=== PATIENT | female | born 1985 | race Caucasian/White ===

== ENCOUNTER 2023-02-16 12:06 | Emergency (ER) | payer MEDICAID ==
[~2023-02-16] VITALS: Ht 154.9 cm; Wt 78.0 kg
[2023-02-16 12:17] VITALS: BP_SYST 143
[2023-02-16] MEDS ORDERED: IPRATROPIUM BROM 0.5 MG/2.5 ML VIAL.NEB (ATROVENT) INH ONE (12:30)
[2023-02-16] MEDS ORDERED: ALBUTEROL SULFATE 0.083% 2.5 MG/3 ML VIAL.NEB INH ONE (12:30)
[2023-02-16 16:03] VITALS: BP_SYST 130
--- NOTE | 2023-02-16 16:05 | NUR ---
ER at triage examining patient.
--- NOTE | 2023-02-16 16:07 | NUR ---
Pt C/O SOB Patient given written and verbal discharge instructions and verbalizes understanding. ER MD discussed with patient the results and treatment provided. Patient in stable condition. ID arm band removed. IV catheter removed intact and dressing applied, no active bleeding. Rx of albuterol given. Patient educated on pain management and to follow up with PMD. Pain Scale 0. Opportunity for questions provided and answered. Medication side effect fact sheet provided. Left w/O DC papers
[2023-02-16] MEDS ORDERED: PRED20TA PO (18:20)
[2023-02-16] MEDS ORDERED: ALBMDI INH (18:20)
--- NOTE | 2023-02-16 18:24 | NUR ---
Patient given written and verbal discharge instructions and verbalizes understanding. ER MD discussed with patient the results and treatment provided. Patient in stable condition. ID arm band removed. Rx of albuterol given. Patient educated on pain management and to follow up with PMD. Pain Scale . Opportunity for questions provided and answered. Medication side effect fact sheet provided.
== END 2023-02-16 18:24 | disposition home or self-care (01) ==
LOC: SED 12:06
DX: J45.901 Unspecified asthma with (acute) exacerbation (principal); R06.02 Shortness of breath; Z79.899 Other long term (current) drug therapy
CPT/HCPCS: 71045; 99283; J7613; 94760

== ENCOUNTER 2023-07-22 09:38 | Emergency (ER) | payer MEDICAID ==
[~2023-07-22] VITALS: Ht 154.9 cm; Wt 81.2 kg
[~2023-07-22 09:38] MED LIST: ALBMDI INH; PRED20TA PO
[2023-07-22 10:05] VITALS: BP_SYST 124; PULSE 72; RESP 16; TEMP 97.8; O2SAT 96
[2023-07-22 11:35] LABS: BILIRUBIN,URINE NEGATIVE (NEGATIVE); BLOOD, URINE TRACE (NEGATIVE); CLARITY/URINE CLEAR (CLEAR); COLOR,URINE YELLOW (YELLOW); GLUCOSE,URINE NEGATIVE (NEGATIVE); KETONES,URINE NEGATIVE (NEGATIVE); PROTEIN URINE NEGATIVE (NEGATIVE)
[2023-07-22 11:36] LABS: LEUKOCYTE ESTERASE ,URINE NEGATIVE (NEGATIVE); NITRITE, URINE NEGATIVE (NEGATIVE); UROBILINOGEN,URINE 0.2 (0.2-1.0)
[2023-07-22 11:52] LABS: BACTERIA,URINE RARE /HPF (None Seen); RBC,URINE 0-3 /HPF (0-3); WBC,URINE NONE SEEN /HPF (0-3)
[2023-07-22 12:15] LABS: BASOPHILS % (AUTO) 0.4 % (0.0-2.0); EOSINOPHILS # (AUTO) 0.2 K/uL (0.0-0.4); EOSINOPHILS % (AUTO) 2.8 % (0.0-4.0); HEMATOCRIT 39.7 % (36-48); HEMOGLOBIN 13.2 g/dL (12.0-16.0); LYMPHOCYTES # (AUTO) 2.3 K/uL (1.0-5.5); LYMPHOCYTES % (AUTO) 33.8 % (20.5-51.5); MEAN CORPUSCULAR HEMOGLOBIN 31 pg (27-31); MEAN CORPUSCULAR HGB CONC 33 % (32-36); MEAN CORPUSCULAR VOLUME 93 fL (79.0-98.0); MONOCYTES # (AUTO) 0.5 K/uL (0.0-1.0); NEUTROPHILS # (AUTO) 3.7 K/uL (1.8-7.7); PLATELET COUNT (AUTO) 241 K/uL (130-430); RED BLOOD CELL COUNT(AUTO) 4.27 MIL/uL (4.2-6.2); RED CELL DISTRIBUTION WIDTH 13.4 % (9.0-15.0); WHITE BLOOD COUNT (AUTO) 6.7 K/uL (4.8-10.8)
[2023-07-22 12:27] LABS: ALBUMIN 3.8 g/dL (3.4-4.8); CALCIUM 9.2 mg/dL (8.4-11.0); CREATININE 0.59 mg/dL (0.55-1.30); POTASSIUM 4.3 mmol/L (3.5-5.1); TOTAL BILIRUBIN 0.5 mg/dL (0.0-1.0); TOTAL PROTEIN, SERUM 7.3 g/dL (6.4-8.3)
[2023-07-22] MEDS ORDERED: ACET-2634 PO (13:43)
== END 2023-07-22 17:52 | disposition home or self-care (01) ==
LOC: SED 09:38
DX: N20.0 Calculus of kidney (principal); R10.2 Pelvic and perineal pain; M54.50 Low back pain, unspecified; R11.0 Nausea; J45.909 Unspecified asthma, uncomplicated; Z79.899 Other long term (current) drug therapy
CPT/HCPCS: 36415; 76376; 80053; 81000; 81025; 83690; 85025; 99284

== ENCOUNTER 2023-10-20 12:14 | Emergency (ER) | payer MEDICAID ==
[~2023-10-20] VITALS: Ht 154.9 cm; Wt 85.7 kg
[~2023-10-20 12:14] MED LIST changes: +ACET-2634 PO
[2023-10-20 12:20] VITALS: BP_SYST 133; PULSE 86; RESP 19; TEMP 97.6; O2SAT 97
[2023-10-20] MEDS ORDERED: NACL 0.9% 1,000 ML IV ONE (14:15)
[2023-10-20] MEDS ORDERED: KETOROLAC TROMETHAMINE 30 MG VIAL IVP ONE (14:15)
[2023-10-20 15:12] LABS: BASOPHILS % (AUTO) 0.5 % (0.0-2.0); EOSINOPHILS # (AUTO) 0.1 K/uL (0.0-0.4); EOSINOPHILS % (AUTO) 2.2 % (0.0-4.0); HEMATOCRIT 40.6 % (36-48); HEMOGLOBIN 13.5 g/dL (12.0-16.0); LYMPHOCYTES # (AUTO) 2.2 K/uL (1.0-5.5); LYMPHOCYTES % (AUTO) 38.8 % (20.5-51.5); MEAN CORPUSCULAR HEMOGLOBIN 31 pg (27-31); MEAN CORPUSCULAR HGB CONC 33 % (32-36); MEAN CORPUSCULAR VOLUME 93 fL (79.0-98.0); MONOCYTES # (AUTO) 0.4 K/uL (0.0-1.0); MONOCYTES % (AUTO) 7.4 % (1.7-9.3); NEUTROPHILS % (AUTO) 51.1 % (40.0-70.0); PLATELET COUNT (AUTO) 268 K/uL (130-430); RED BLOOD CELL COUNT(AUTO) 4.36 MIL/uL (4.2-6.2); RED CELL DISTRIBUTION WIDTH 13.1 % (9.0-15.0); WHITE BLOOD COUNT (AUTO) 5.8 K/uL (4.8-10.8)
[2023-10-20] MEDS ORDERED: cefTRIAXone 1 GM IVPB PREMIX 50 ML IV ONE (15:30)
[2023-10-20] MEDS ORDERED: ONDANSETRON HCL 4 MG/2 ML VIAL IVP ONE ×2 (15:30→16:45)
[2023-10-20 15:44] LABS: PROTHROMBIN TIME 10.3 SECS (9.5-12.5)
[2023-10-20 15:48] LABS: BILIRUBIN,DIRECT 0.2 mg/dL (0.0-0.3); CALCIUM 9.3 mg/dL (8.4-11.0); CREATININE 0.63 mg/dL (0.55-1.30); POTASSIUM 3.3 mmol/L (3.5-5.1); TOTAL BILIRUBIN 0.6 mg/dL (0.0-1.0)
[2023-10-20 16:22] LABS: BILIRUBIN,URINE NEGATIVE (NEGATIVE); BLOOD, URINE 1+ (NEGATIVE); CLARITY/URINE CLOUDY (CLEAR); COLOR,URINE YELLOW (YELLOW); GLUCOSE,URINE NEGATIVE (NEGATIVE); KETONES,URINE NEGATIVE (NEGATIVE); LEUKOCYTE ESTERASE ,URINE 1+ (NEGATIVE); NITRITE, URINE NEGATIVE (NEGATIVE); PROTEIN URINE NEGATIVE (NEGATIVE); UROBILINOGEN,URINE 0.2 (0.2-1.0)
[2023-10-20 16:44] LABS: BACTERIA,URINE MODERATE /HPF (None Seen)
[2023-10-20] MEDS ORDERED: MORPHINE 4 MG INJ. 4 MG/ML VIAL IVP ONE (16:45)
[2023-10-20] MEDS ORDERED: PERC10 PO (17:00)
[2023-10-20] MEDS ORDERED: ACET325T53 PO (17:00)
[2023-10-20] MEDS ORDERED: CEPH-548 PO (17:00)
[2023-10-20] MEDS ORDERED: NAPR-688 PO (17:00)
[2023-10-20] MEDS ORDERED: PHEN-890 PO (17:06)
[2023-10-20 17:25] VITALS: BP_SYST 126; PULSE 86; RESP 19; TEMP 97.6; O2SAT 97
== END 2023-10-20 17:26 | disposition home or self-care (01) ==
LOC: SED 12:14
DX: N12 Tubulo-interstitial nephritis, not specified as acute or chronic (principal); N23 Unspecified renal colic; J45.909 Unspecified asthma, uncomplicated; Z79.899 Other long term (current) drug therapy
CPT/HCPCS: 99285; 74176; 96374; 96375; 80076; 80048; 81001; 85025; 85610; 85730; 87040; 87086; 36415; 93005; 76376; 96376; 81025; 83605; J0696; J1885; J2405; J2270; J7030; 81000; 81015